=== PATIENT | male | born 2000 | race Caucasian/White ===

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

== ENCOUNTER 2018-08-06 04:31 | Emergency (ER) | payer OTHER ==
[2018-08-06 04:36] VITALS: TEMP 98
[2018-08-06] MEDS ORDERED: PROPARACAINE 0.5% OPHTH DROPS 15 ML BTL BOTH EYES STA (04:47)
[2018-08-06] MEDS ORDERED: traMADol 50 MG STARTER PACK 3 TAB BTL PO STA ×2 (05:30→06:14)
--- NOTE | 2018-08-06 05:30 | ED ---
Eye Problem HPI - General Chief complaint: Eye Problems Stated complaint: Eye Injury Time Seen by Provider: 08/06/18 04:48 Source: patient, family Mode of arrival: ambulatory Limitations: no limitations - History of Present Illness Initial comments: Patient's 18-year-old man here to be evaluated for bilateral eye redness and pain. Came on tonight around 1 AM. 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 Patient denies any real change in visual acuity. She states that there is some blurriness but believes is because his eyes are tearing. No previous ophthalmologic history. Patient denies any foreign body. He was not doing any high-speed grinding. I will questioned, patient was not sure when his last tetanus shot is but certainly was less than 10 years ago chief complaint: eye pain, eye redness -: hour(s) Onset Description: gradual Location: both eyes Place: home If Injury: UV exposure Eye Symptoms: burning, redness Severity: severe If Pain, Quality: burning Consistency: constant Associated Symptoms: none Treatments Prior to Arrival: none - Related Data Patient Tetanus UTD: Yes (< 10 yrs) Home Medications Medication Instructions Recorded Confirmed No Known Home Medications 07/05/17 07/05/17 Allergies Allergy/AdvReac Type Severity Reaction Status Date / Time No Known Allergies Allergy Verified 07/05/17 17:37 Review of Systems ROS Statement: Those systems with pertinent positive or pertinent negative responses have been documented in the HPI. ROS Other: All systems not noted in ROS Statement are negative. Constitutional: Denies: fever, chills Eyes: Reports: as per HPI, eye pain, other (Tearing) Respiratory: Denies: cough, dyspnea Gastrointestinal: Denies: nausea, vomiting Skin: Denies: rash Neurological: Denies: headache Past Medical History Past Medical History: Hypertension History of Any Multi-Drug Resistant Organisms: None Reported Additional Past Surgical History / Comment(s): lymph nodes removed Past Psychological History: No Psychological Hx Reported Smoking Status: Never smoker Past Alcohol Use History: None Reported Past Drug Use History: None Reported General Exam Limitations: no limitations General appearance: alert, in no apparent distress Head exam: Present: atraumatic, normocephalic Eye exam: Present: PERRL, EOMI, conjunctival injection. Absent: scleral icterus , nystagmus Expanded Eyelids: Normal Inspection: Bilateral Pupils: Regular, Round: Bilateral, Reactive: Bilateral Sclera/Conjunctival: Injection: Bilateral Anterior chamber: Normal Inspection: Bilateral Course Vital Signs 08/06/18 04:32 Temperature 98.0 F Pulse Rate 74 Respiratory 16 Rate Blood Pressure 159/89 O2 Sat by Pulse 99 Oximetry Medical Decision Making - Medical Decision Making Floor seems stain applied and there is bilateral superficial punctate keratitis. Patient did have relief of symptoms with the proparacaine. Discussed appropriate further care and follow-up as well as return parameters. Disposition Clinical Impression: Welders' keratitis Disposition: HOME SELF-CARE Condition: Good Instructions: Corneal Flash Jloly (ED) Is patient prescribed a controlled substance at d/c from ED?: No Referrals: Deshaun Meadows DO [Primary Care Provider] - 1-2 days Colby Lam MD [STAFF PHYSICIAN] - 1-2 days
[2018-08-06] MEDS ORDERED: ERYTHROMYCIN 5 MG/GM OPHTH OINT 3.5 GM TUBE BOTH EYES SCH (06:00)
[2018-08-06 06:30] VITALS: BP 142/65; PULSE 73; RESP 17
== END 2018-08-06 06:32 | disposition home or self-care (01) ==
LOC: EC 04:31
DX: H16.133 Photokeratitis, bilateral (principal); W89.8XXA Exposure to other man-made visible and ultraviolet light, initial encounter
CPT/HCPCS: 99283